=== PATIENT | male | born 1975 | race Caucasian/White ===

== ENCOUNTER 2023-03-06 15:52 | Emergency (ER) | payer BC, SELFPAY ==
[2023-03-06] VITALS (23 sets, daily range): BP systolic 132–155; BP diastolic 72–86; PULSE 78–92; RESP 13–20; TEMP 37; O2SAT 97–100
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
--- NOTE | 2023-03-06 16:00 | DI.CT_ITS ---
Exam(s) CT CHEST/ABD/PEL W CT THORACIC LUMBAR SPINE REC EXAM: CT CHEST/ABD/PEL W and CT thoracic and lumbar spine recons CLINICAL HISTORY: trauma TECHNIQUE: Imaging Protocol: Axial computed tomography images with coronal and sagittal reformatted images were created and reviewed CONTRAST MATERIAL: Intravenous: Omnipaque 350 contrast volume:100 mL Oral: No COMPARISON: CT CT THORACIC LUMBAR SPINE REC from 03/06/2023 FINDINGS: CHEST: Tracheobronchial tree: Patent where visualized. Pulmonary parenchyma: There is dependent atelectasis in the lung bases. No architectural distortion. Visualized thyroid gland: There is a 3 mm nodule in the right lobe of the thyroid gland. No follow-u p is recommended. Mediastinum and Lenora: No dominant adenopathy or fluid collection. The esophagus is unremarkable. Pleura: No effusion or pneumothorax. Heart: The heart is not dilated. No coronary artery calcifications are seen. No pericardial effusion. Pulmonary arteries: The pulmonary arteries are inadequately opacified for evaluation of pulmonary emb sharonda. No large central pulmonary embolus is present. Aorta: Thoracic aorta non-dilated. Minimal atherosclerosis. Lymph nodes: Within normal limits. Soft tissues: Unremarkable. Bones:Within normal limits for the patient's age. Thoracic spine recons: There are mild degenerative changes present. No acute fracture or subluxation is identified. ABDOMEN: Liver: Normal density. No measurable mass. Portal, Superior Mesenteric, and Splenic Veins: Unremarkable. Gallbladder and Biliary Tract: No radiodense calculus or dilation. Pancreas: Normal density, no abnormal calcifications or inflammatory process. Spleen: Normal. Adrenals: No masses seen. Kidneys: Normal size, contour and axis. There is a nonobstructing 2 mm stone in the lower pole of the left kidney. No masses seen. Abdominal Aorta: Abdominal portion non-dilated. Atherosclerosis is present. Bowel: No obstruction or bowel wall thickening. Appendix is unremarkable. Peritoneal Cavity: No ascites, collection or mesenteric inflammatory response. No free air. Lymph Nodes: Within normal limits. Bones: Within normal limits for the patient's age. Soft Tissues: There are findings of a prior right inguinal hernia repair. Lumbar spine CT recons: Mild degenerative changes are seen. No acute fracture or subluxation is pres ent. PELVIS: Bladder: Symmetric distention, no gross wall thickening. Reproductive Organs: Unremarkable as visualized. Lymph Nodes: Within normal limits. Bones: Within normal limits. IMPRESSION: 1. Mild dependent atelectasis in the lung bases. No other acute thoracic abnormality. 2. No acute abdominal or pelvic organ injury. 3. No acute fracture or subluxation seen in the thoracic spine. 4. Findings were discussed with the emergency department at 5:25 p.m. on 03/06/2023. RADIATION DOSE DELIVERED: Total DLP DATA REPOSITORY: All CT scans at this facility are submitted to the National Radiology Data Registry (NRDR) Dose Index Registry (DIR) with the [employer] (ACR). RADIATION OPTIMIZATION: All CT scans at this facility use at least one of these dose optimization te chniques: automated exposure control; mA and/or kV adjustment per patient size (includes targeted exa ms where dose is matched to clinical indication); or iterative reconstruction.
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
[2023-03-06] MEDS: Lactated Ringers 1,000 ML 1000 ML IV (16:14)
[2023-03-06 16:21] LABS: Abs Immature Grans 0.06 10^3/uL (0.0-0.06); Absolute Basophil Count 0.04 10^3/uL (0.0-0.2); Absolute Lymphocyte Count 1.84 10^3/uL (1.2-3.4); Absolute Neutrophil Count 9.33 10^3/uL (1.2-6.7); Basophils % 0.3; Eosinophils % 0.8; HCT 45.7 % (40.0-50.0); HGB 15.9 g/dL (13.5-17.5); Immature Grans % 0.5; Lymphocytes % 14.8; MCH 29.7 pg (27.0-33.0); MCHC 34.8 % (32.0-36.0); MCV 85 fL (80-95); MPV 9.7 fL (8.0-11.0); Monocytes % 8.5; Neutrophils % 75.1; Platelet Count 280 10^3/uL (130-400); RBC 5.35 10^6/uL (4.36-5.78); RDW 12.5 % (11.8-14.1); RDW-SD 38.8 fL; WBC 12.42 10^3/uL (4.4-10.8)
[2023-03-06 16:22] LABS: Absolute Monocyte Count 1.06 10^3/uL (0.1-0.8)
[2023-03-06 16:34] LABS: PTT Activated 20.3 sec (21.5-31.9); Prothrombin Time 10.6 sec (9.3-11.0)
[2023-03-06 16:43] LABS: ALT 26 U/L (16-63); AST 22 U/L (15-37); Albumin 3.9 g/dL (3.4-5.0); Alkaline Phosphatase 57 U/L (46-116); Anion Gap 9.7 mmol/L (3-11); BUN 25 mg/dL (7-18); Bilirubin, Total 0.6 mg/dL (0.2-1.0); CO2 24.3 mmol/L (21.0-32.0); CREATININE 1.3 mg/dL (0.70-1.30); Calcium 9.2 mg/dL (8.5-10.1); Chloride 104 mmol/L (98-107); Estimated GFR 66.93 (mL/min/1.73m2); Glucose 108 mg/dL (74-106); Lipase 38 U/L (16-77); Magnesium 1.8 mg/dL (1.8-2.4); Potassium 4.2 mmol/L (3.5-5.1); Sodium 138 mmol/L (136-145); Total Protein 6.8 g/dL (6.4-8.2); Troponin I < 50 ng/L (<or=60)
[2023-03-06] MEDS: Omnipaque 350 MG/ML 100 ML BTL IJ (17:02)
[2023-03-06] MEDS: Normal Saline Flush 10 ML SYR IVP (17:02)
[2023-03-06] MEDS: Normal Saline - Diluent 50 ML VIAL IJ (17:02)
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
[2023-03-06] MEDS: CLINDAMYCIN 300 MG/50 ML BAG 100 MG IVPB (17:19)
[2023-03-06] MEDS: HYDROmorphone 2 MG/ML SYR 1 MG IVP (17:28)
--- NOTE | 2023-03-06 18:15 | RT.EKG_ITS ---
APPROVED REPORT Exam: Resting ECG Reason for Exam: trauma Patient Location: E HR:83 bpm ECG Measurements Heart Rate 83 AXIS [place] 174 P 23 QRSd 91 QRS 53 QT 353 T 22 QTc 415 Conclusion Sinus rhythm...normal P axis, V-rate 60- 99 ST elev, probable normal early repol pattern...ST elevation, age<[address] elevation, U waves. Normal. T wave inversion in III, no STEMI
== END 2023-03-06 18:36 | disposition short-term general hospital (02) ==
PROVIDERS: Emergency Provider Emergency Medicine Emergency Medical Services
DX: S02.609A Fracture of mandible, unspecified, initial encounter for closed fracture (principal); S12.001A Unspecified nondisplaced fracture of first cervical vertebra, initial encounter for closed fracture; S62.306A Unspecified fracture of fifth metacarpal bone, right hand, initial encounter for closed fracture; S02.40CA Maxillary fracture, right side, initial encounter for closed fracture; M26.4 Malocclusion, unspecified; S00.81XA Abrasion of other part of head, initial encounter; S60.512A Abrasion of left hand, initial encounter; S60.511A Abrasion of right hand, initial encounter; V19.88XA Pedal cyclist (driver) (passenger) injured in other specified transport accidents, initial encounter; Y93.55 Activity, bike riding; Y92.9 Unspecified place or not applicable; Y99.9 Unspecified external cause status
CPT/HCPCS: 36415; 74177; 80053; 83690; 86850; 86900; 86901; 90472; 93005; 96361; 96365; 96375; 99285; 70450; 70486; 71260; 72125; 73130; 73610; 83735; 84484; 85025; 85610; 85730; 93010; 99284; J1170; J3490